=== PATIENT | female | born 2000 | race African-American/Black ===

== ENCOUNTER 2021-12-06 23:43 | Inpatient (IN) ==
[2021-12-07] MEDS ORDERED: LACTATED RINGERS 500 ML IV PRN (00:51)
[2021-12-07] MEDS ORDERED: LACTATED RINGERS 250 ML IV ONE (00:51)
[2021-12-07 01:05] LABS: Basophils % 0.2 % (0.0-0.8); Eosinophils % 0.3 % (0.00-10.9); Hemoglobin 11.7 GM/DL (12.0-16.0); Immature Granulocytes % 0.4 %; Immature Granulocytes Absolute 0.04 #; Lymphocytes # 1.6 10*3/uL (1.4-4.0); Lymphocytes % 15.3 % (21.3-54.2); Mean Corpuscular HGB Conc 33.4 GM/DL (32-36); Mean Corpuscular Volume 87.7 FL (87-102); Mean Platelet Volume 12.3 FL (9.6-12.0); Monocytes % 7.2 % (1.7-12.7); Neutrophils % 76.6 % (38.7-73.9); Platelet Count 192 T/CUMM (130-400); Red Blood Count 3.99 MC/CUMM (3.8-5.5); Red Cell Distribution Width 13.2 % (9.3-17.3); White Blood Count 10.7 T/CUMM (4-12)
[2021-12-07 01:22] LABS: Alanine Aminotransferase 12 U/L (13-56); Albumin 2.7 G/DL (3.4-5.0); Alkaline Phosphatase 177 U/L (45-117); Aspartate Amino Transferase 10 U/L (0-37); Bilirubin,Total < 0.39 MG/DL (0.20-1.00); Blood Urea Nitrogen 14 MG/DL (7-18); Calcium 8.8 MG/DL (8.5-10.1); Carbon Dioxide 22 MMOL/L (21-32); Estimated Glom Filtration Rate 199 ML/MIN; Glucose 88 MG/DL (74-106); Osmolality,Calculated 272.8 MOS/KG (273-304); Potassium 3.9 MMOL/L (3.5-5.1); Sodium 137 MMOL/L (136-145); Total Protein 7.2 G/DL (6.4-8.2)
[2021-12-07] MEDS: LACTATED RINGERS 1,000 ML IV SCH ×3 (01:33→20:25)
[2021-12-07] MEDS ORDERED: AMPICILLIN INJ 2,000 MG in SODIUM CHLORIDE 0.9% 100 ML IV ONE (08:46)
[2021-12-07] MEDS ORDERED: MEPERIDINE 50 MG/1 ML VIAL IV PRN (10:18)
[2021-12-07] MEDS ORDERED: BUTORPHANOL 2 MG/ML VIAL IV PRN (10:18)
[2021-12-07] MEDS: ONDANSETRON 4 MG/2 ML VIAL IV PRN (10:29)
[2021-12-07] MEDS ORDERED: ePHEDrine 50 MG/ML VIAL IV PRN (12:27)
[2021-12-07] MEDS ORDERED: PROMETHAZINE 25 MG/1 ML VIAL IM ONE (12:27)
[2021-12-07] MEDS ORDERED: diphenhydrAMINE 50 MG/1 ML VIAL IV PRN ×2 (12:27)
[2021-12-07] MEDS ORDERED: NALOXONE 0.4 MG/ML VIAL IV PRN (12:27)
[2021-12-07] MEDS ORDERED: hydrOXYzine HCL 25 MG/1 ML VIAL IM PRN (12:27)
[2021-12-07] MEDS ORDERED: OXYTOCIN/LR 20 UNIT/1,000 ML BAG IV SCH (13:00)
[2021-12-07] MEDS ORDERED: CITRIC ACID/SODIUM CITRATE 30 ML UDCUP PO ONE (13:00)
[2021-12-07] MEDS ORDERED: LACTATED RINGERS 1,000 ML IV ONE (13:00)
[2021-12-07] MEDS ORDERED: FAMOTIDINE 20 MG/2 ML VIAL IV ONE (13:00)
[2021-12-07] MEDS: fentaNYL 2 MCG/ROPIV 0.2% EPID 100 ML EPIDURAL SCH ×2 (13:44→20:23)
[2021-12-07 14:52] LABS: Mucus,Urine Occasional /LPF (Occasional)
[2021-12-07 14:54] LABS: Bilirubin,Urine Negative (Negative); Blood, Urine Negative (Negative); Glucose,Urine (UA) Negative (Negative); Ketones,Urine 15 mg/dL (Negative); Nitrite,Urine Negative (Negative); Protein,Urine 1+ mg/dL (Negative); Urine Appearance Clear (Clear); Urine Color Yellow (Yellow); Urine Specific Gravity 1.025 (1.001-1.035); Urine Urobilinogen 0.2 eU/dL (<2.0)
[2021-12-07] MEDS ORDERED: TERBUTALINE 1 MG/1 ML VIAL ONE (15:55)
[2021-12-07] MEDS: AMPICILLIN INJ 1,000 MG in SODIUM CHLORIDE 0.9% 100 ML IV SCH ×2 (16:07→22:00)
[2021-12-07] MEDS ORDERED: TERBUTALINE 1 MG/1 ML VIAL SUBCUT ONE (16:30)
[2021-12-08] MEDS: AMPICILLIN INJ 1,000 MG in SODIUM CHLORIDE 0.9% 100 ML IV SCH ×2 (02:20→06:32)
[2021-12-08] MEDS: LACTATED RINGERS 1,000 ML IV SCH (02:31)
[2021-12-08] MEDS: fentaNYL 2 MCG/ROPIV 0.2% EPID 100 ML EPIDURAL SCH (04:08)
[2021-12-08] MEDS ORDERED: TRANEXAMIC ACID 1,000 MG/10 ML VIAL ONE (07:14)
[2021-12-08] MEDS ORDERED: miSOPROStoL 200 MCG TABLET ONE (07:14)
[2021-12-08] MEDS ORDERED: SODIUM CHLORIDE 0.9% 0 ML IV ONE (07:15)
[2021-12-08] MEDS ORDERED: CARBOPROST TROMETHAMINE 250 MCG/ML AMP IM ONE (07:15)
[2021-12-08] MEDS ORDERED: METHYLERGONOVINE 0.2 MG/1 ML AMP ONE (07:15)
[2021-12-08] MEDS ORDERED: OXYTOCIN/LR 0 UNIT/0 ML BAG IV ONE (07:15)
[2021-12-08] MEDS: ONDANSETRON 4 MG/2 ML VIAL IV PRN (07:22)
[2021-12-08 09:01] LABS: Cord Venous Blood HCO3 19.5 MMOL/L; Cord Venous Blood PCO2 45.6 MMHG
[2021-12-08] MEDS ORDERED: IBUPROFEN 800 MG TABLET PO ONE (11:10)
[2021-12-08] MEDS ORDERED: WITCH HAZEL PADS 100/JAR TOP PRN (12:32)
[2021-12-08] MEDS ORDERED: OXYTOCIN/LR 20 UNIT/1,000 ML BAG IV ONE (12:32)
[2021-12-08] MEDS ORDERED: RHO(D) IMMUNE GLOBULIN 300 MCG SYRINGE IM ONE (12:32)
[2021-12-08] MEDS ORDERED: oxyCODONE/ACETAMINOPHEN 5-325 MG TABLET PO PRN (12:32)
[2021-12-08] MEDS ORDERED: BISACODYL 10 MG SUPP RECTAL PRN (12:32)
[2021-12-08] MEDS ORDERED: BENZOCAINE 20%/MENTHOL 0.5% SPRAY 56 GM CAN TOP PRN (12:32)
[2021-12-08] MEDS ORDERED: ACETAMINOPHEN 325 MG TABLET PO PRN (12:32)
[2021-12-08] MEDS ORDERED: HYDROCORTISONE 2.5% RECTAL CREAM 30 GM TUBE TOP PRN (12:32)
[2021-12-08] MEDS ORDERED: DIPH/TET/ACEL PERT BOOSTER VACCINE 0.5 ML VIAL IM ONE (12:32)
[2021-12-08] MEDS ORDERED: MEASLES/MUMPS/RUBELLA VACCINE 0.5 ML VIAL SUBCUT ONE (12:32)
[2021-12-08] MEDS ORDERED: LANOLIN 50% CREAM 0.3 OZ TUBE TOP PRN (12:32)
[2021-12-08] MEDS: oxyCODONE/ACETAMINOPHEN 5-325 MG TABLET PO PRN ×2 (13:18→22:42)
[2021-12-08] MEDS: IBUPROFEN 800 MG TABLET PO PRN (20:12)
[2021-12-08] MEDS: DOCUSATE SODIUM 100 MG CAPSULE PO SCH (21:43)
[2021-12-09 03:18] LABS: Basophils % 0.2 % (0.0-0.8); Eosinophils % 0.3 % (0.00-10.9); Hematocrit 31.6 VOL% (35.7-47.0); Hemoglobin 10.5 GM/DL (12.0-16.0); Immature Granulocytes % 0.4 %; Immature Granulocytes Absolute 0.05 #; Lymphocytes # 1.6 10*3/uL (1.4-4.0); Lymphocytes % 13.6 % (21.3-54.2); Mean Corpuscular HGB Conc 33.2 GM/DL (32-36); Mean Corpuscular Volume 88.5 FL (87-102); Mean Platelet Volume 11.5 FL (9.6-12.0); Monocytes % 4.8 % (1.7-12.7); Neutrophils % 80.7 % (38.7-73.9); Platelet Count 158 T/CUMM (130-400); Red Blood Count 3.57 MC/CUMM (3.8-5.5); Red Cell Distribution Width 13.3 % (9.3-17.3); White Blood Count 11.4 T/CUMM (4-12)
[2021-12-09] MEDS: DOCUSATE SODIUM 100 MG CAPSULE PO SCH ×2 (09:39→20:28)
[2021-12-09] MEDS: oxyCODONE/ACETAMINOPHEN 5-325 MG TABLET PO PRN ×2 (14:24→21:29)
[2021-12-10 08:28] VITALS: BP 143/83
[2021-12-10] MEDS: DOCUSATE SODIUM 100 MG CAPSULE PO SCH (09:42)
[2021-12-10] MEDS: IBUPROFEN 800 MG TABLET PO PRN (10:24)
== END 2021-12-10 12:10 | disposition home or self-care (01) | DRG 560 ==
LOC: N.LD 23:43 → N.OB 12-08 12:31
PROVIDERS: ADMIT Obstetrics & Gynecology; ATTEND Obstetrics & Gynecology